=== PATIENT | female | born 1985 | race Caucasian/White ===

== ENCOUNTER 2021-11-17 11:00 | Day surgery (SDC) | payer OTHER ==
--- NOTE | 2021-11-17 08:47 | HP ---
DATE OF SURGERY: 11/17/2021 HISTORY OF PRESENT ILLNESS: The patient is a 36-year-old who starting at age 18 and now increasing discomfort and size and desires excision of subcutaneous mass or cyst abdominal wall. PAST MEDICAL HISTORY: Anxiety. PAST SURGICAL HISTORY: Tonsillectomy. Tubal ligation. MEDICATIONS: Cymbalta. ALLERGIES: NKDA. FAMILY HISTORY: Diabetes, hypertension, breast cancer. SOCIAL HISTORY: No smoking or alcohol abuse. REVIEW OF SYSTEMS: Fourteen systems. No chest pain or palpitations. Other systems negative or noncontributory as above and per preadmission questionnaire. PHYSICAL EXAMINATION: GENERAL: No acute distress. HEENT: Sclerae nonicteric. Moist mucous membranes. NECK: No JVD. CHEST: Equal excursion, nonlabored breathing. CVS: Regular rate and rhythm. ABDOMEN: Soft. No peritoneal signs. Subcutaneous mass or cyst. EXTREMITIES: No significant edema. NEURO: Alert, oriented, moving extremities symmetrically. No gross motor deficits noted. PSYCH: Appropriate mood and affect. IMPRESSION: Enlarging symptomatic increasing discomfort subcutaneous mass or cyst abdominal wall. I feel the patient would benefit is in need of excisional biopsy. Risks and benefits explained in detail including bleeding or infection, risk of wound dehiscence possibly requiring packing, general risk of aches, pains, burning or numbness. Once we remove it will send off for path and usually are benign. There is a possibility while usually they do not recur at the site, could get similar cyst or nodule adjacent to or elsewhere on her body. She understands and agrees to the planned procedure. Will proceed with outpatient excisional biopsy of abdominal wall subcutaneous mass or cyst as an outpatient.
[~2021-11-17 11:00] MED LIST: Sensorcaine 0.25% 10 ML ONE
[2021-11-17] MEDS ORDERED: Lactated Ringers 1,000 ML IV ONE ×2 (11:12→14:59)
[2021-11-17] MEDS ORDERED: Lactated Ringers 1,000 ML IV SCH (11:30)
[2021-11-17] MEDS ORDERED: CEFAZOLIN 2 GM-D5W BAG** 2 GM/50 ML ML IV SCH (12:00)
[2021-11-17] MEDS ORDERED: Versed 2 MG/2 ML Injection IV ONE (13:05)
[2021-11-17] MEDS ORDERED: TORAdol 30 mg Injection ONE (13:44)
[2021-11-17] MEDS ORDERED: Zemuron 100 MG/10 ML ONE (13:44)
[2021-11-17] MEDS ORDERED: SUBLIMAZE 100 MCG/2 ML ONE ×2 (13:44→14:40)
[2021-11-17] MEDS ORDERED: Decadron 4 MG INJ ONE (13:44)
[2021-11-17] MEDS ORDERED: DIPRIVAN 200 MG/20 ML IV ONE (13:44)
[2021-11-17] MEDS ORDERED: BRIDION 200MG/2ML IV ONE (13:44)
[2021-11-17] MEDS ORDERED: Xylocaine-Mpf 2% 5 Ml Vial ONE (13:44)
[2021-11-17] MEDS ORDERED: Zofran 4 MG/2 ML VIAL ONE (13:44)
[2021-11-17] MEDS ORDERED: Hydromorphone 1 mg/ml Injection ONE (14:41)
--- NOTE | 2021-11-17 15:26 | OP ---
SURGERY DATE/TIME: 11/17/2021 7311 PREOPERATIVE DIAGNOSIS: Enlarging subcutaneous cyst or mass abdominal wall. POSTOPERATIVE DIAGNOSIS: Enlarging subcutaneous cyst or mass abdominal wall. PROCEDURE: Excisional biopsy abdominal wall subcutaneous cyst (approximately 5 cm) with intermediate closure. SURGEON: Dr. Dennis Weir. ANESTHESIA: General. ESTIMATED BLOOD LOSS: Minimal. INDICATIONS: As noted above. Risks and benefits explained in detail and not limited to and consent obtained. The site had been confirmed and marked in the preoperative holding area. DESCRIPTION OF PROCEDURE AND FINDINGS: The patient is taken to the operating room. General anesthesia induced. She is prepped and draped in the usual sterile fashion. After official time out and no disagreement with planned procedure, marking out around to the small sliver of skin dissection carried down circumferentially what appeared to be a little bit of lobulated, large subcutaneous cyst carefully dissecting off the underlying fascia. It was passed off for pathology. It measured about 5 cm in size. Pinpoint cautery, good hemostasis noted. The wound is irrigated out. Deeper subcu closed with 3-0 Vicryl. Skin closed with 4-0 Vicryl. Steri-Strips and sterile dressing applied. 0.25% Marcaine local injected along the skin incision. The patient tolerated the procedure well. There was no family to discuss the findings with out in the waiting area.
[2021-11-17 15:44] VITALS: BP 138/89; PULSE 93; O2SAT 98
== END 2021-11-17 15:55 | disposition home or self-care (01) ==
LOC: SDC 11:00
PROVIDERS: ATTEND Surgery
DX: L72.0 Epidermal cyst (principal); R19.00 Intra-abdominal and pelvic swelling, mass and lump, unspecified site; Z80.3 Family history of malignant neoplasm of breast
CPT/HCPCS: 84703; J0690; J1100; J1170; J1885; J2250; J2405; J2704; J3010